=== PATIENT | female | born 1945 | race Caucasian/White ===

== ENCOUNTER 2016-08-02 05:35 | Inpatient (IN) ==
[~2016-08-02 05:35] MED LIST: FAMOTIDINE 20 MG TABLET PO ONE
[2016-08-02] MEDS ORDERED: VANCOMYCIN INJ 1,000 MG in SODIUM CHLORIDE 0.9% 250 ML IV ONE ×2 (06:00→19:15)
--- NOTE | 2016-08-02 06:54 | History and Physical Update ---
History and Physical Update - History and Physical H&P was reviewed, the patient examined and there: are no changes in the patients condition since last H&P was completed. (superficial skin tear right forearm)
[2016-08-02] MEDS ORDERED: IPRATROPIUM 500 MCG/2.5 ML NEB RESP TX ONE (07:00)
[2016-08-02] MEDS ORDERED: ALBUTEROL 2.5 MG/3 ML NEB RESP TX ONE (07:00)
[2016-08-02] MEDS ORDERED: LORazepam 1 MG TABLET PO ONE (07:00)
[2016-08-02] MEDS ORDERED: LACTATED RINGERS 1,000 ML IV SCH (08:00)
[2016-08-02] MEDS ORDERED: VANCOMYCIN 1,000 MG VIAL ONE (08:08)
[2016-08-02] MEDS ORDERED: LORazepam 1 MG TABLET ONE (08:09)
[2016-08-02] MEDS ORDERED: ceFAZolin 1,000 MG VIAL ONE (08:09)
[2016-08-02] MEDS ORDERED: FAMOTIDINE 20 MG TABLET ONE (08:09)
[2016-08-02] MEDS ORDERED: LIDOCAINE 2% 5 ML VIAL ONE (10:05)
[2016-08-02] MEDS ORDERED: PROPOFOL 200 MG/20 ML VIAL IV ONE (10:05)
[2016-08-02] MEDS ORDERED: BACITRACIN OINT 0.9 GM PACK TOP ONE (11:06)
--- NOTE | 2016-08-02 11:18 | Operative Note ---
Date of procedure: 08/02/16 Procedure: DIAGNOSIS: Right knee primary osteoarthrosis PROCEDURE: Right total knee arthroplasty (cpt #57023) SURGEON: Guera STRATEGY PLANNING CONSULTANT: Nathanael ANESTHESIA: Spinal with a postoperative femoral nerve block PROCEDURE and FINDINGS: After adequate was induced, the patient's knee was prepped and draped in the usual sterile fashion. The limb was exsanguinated with Esmarch. Tourniquet was inflated to 300 mmHg. A median parapatellar approach was made. Femur was cut using an intramedullary guide and a 4 in 1 cutting jig in 5 degrees of valgus. ACL and menisci were excised. Tibia was cut using intramedullary guide. Patella was cut using freehand technique. Components were trialed. Tibial fin was prepared. Components are cemented in place using Palacos cement and modern cementing techniques. Cement was removed. A 1/8 inch Hemovac drain was placed. The knee was well-balanced and full range of motion with central tracking patella. Deep layers closed with 0-0 Vicryl. Superficial layers were closed with 2-0 and 3-0 Vicryl. Skin was approximated with maikel. Bacitracin and a sterile dressing was applied. Patient was transferred to recovery. A postoperative femoral nerve block is anticipated. COMPONENTS: The Rosa Persona system was used. 7 CR narrow femur, D natural tibia, 12 mm liner, 35 mm patella TOURNIQUET TIME: 36 minutes Surgeon / Physician: Modesto Lynne Jr. Discharge Plan - Discharge Medications No Action Theophylline ER Tab 400 mg PO DAILY Potassium Chloride [Klor-Con M20] 20 meq PO BID Aclidinium Erie [Tudorza Pressair] 400 mcg IH BID Chlorthalidone 12.5 mg PO DAILY predniSONE TAB [PredniSONE] 10 mg PO DAILY Theophylline ER Tab 400 mg PO DAILY Clonidine HCl [Clonidine HCl ER] 0.1 mg PO BID Cholecalciferol [Vitamin D3] 1 tablet PO DAILY Aspirin [Ecotrin] 81 mg PO DAILY Albuterol Sulfate [Ventolin HFA] 2 puff INH Q4H PRN PRN Reason: Shortness Of Breath/Wheezing Budesonide/Formoterol 160-4.5 [Symbicort 160-4.5] 2 puff INH BID Meloxicam [Mobic] 15 mg PO DIRECTED - Follow Up or Referral - Forms/Instructions
--- NOTE | 2016-08-02 11:29 | Anesthesia ---
Anesthesia Post OP - Post Ansesthetic Evaluation Patient seen in post op: Yes Resp: within normal limits CV: within normal limits Mental: within normal limits Temp: within normal limits [id number]: within normal limits Nausea and Vomiting: within normal limits Pain: within normal limits
[2016-08-02] MEDS ORDERED: ROPIVACAINE 0.5% 30 ML VIAL ONE (11:30)
[2016-08-02] MEDS ORDERED: KETOROLAC 15 MG/1 ML VIAL IV SCH (11:30)
[2016-08-02] MEDS ORDERED: fentaNYL 100 MCG/2 ML VIAL ONE (11:31)
[2016-08-02] MEDS ORDERED: ACETAMINOPHEN 1,000 MG/100 ML VIAL IV ONE (11:31)
[2016-08-02] MEDS ORDERED: SODIUM CHLORIDE 0.9% 200 ML IV ONE (11:31)
[2016-08-02] MEDS ORDERED: MORPHINE 10 MG/10 ML VIAL ONE (11:31)
[2016-08-02] MEDS ORDERED: MIDAZOLAM 2 MG/2 ML VIAL ONE (11:31)
[2016-08-02] MEDS ORDERED: KETOROLAC 30 MG/1 ML VIAL ONE (12:20)
--- NOTE | 2016-08-02 13:10 | XRay Report ---
XR knee 2V RT Indication: Arthroplasty Comparison: None available Findings: Knee arthroplasty has been performed. Alignment and component positioning appears within normal limits. Impression: Expected postoperative appearance of the knee. PROCEDURE INTERPRETED AT [facility] DEPARTMENT OF RADIOLOGY Final Report Signed by: Dr. Brian Antunez
[2016-08-02] MEDS: KETOROLAC 15 MG/1 ML VIAL IV SCH ×2 (14:05→22:11)
[2016-08-02] MEDS ORDERED: ALBUTEROL 2.5 MG/3 ML NEB RESP TX PRN (15:00)
[2016-08-02] MEDS: ONDANSETRON 4 MG/2 ML VIAL IV PRN (15:26)
[2016-08-02] MEDS: ACETAMINOPHEN 500 MG TABLET PO SCH ×2 (15:32→22:41)
--- NOTE | 2016-08-02 16:12 | Pulmonology Progress Note ---
Pulmonary - PN: Subj Interval history: The patient is 71 years old and has COPD. She has considerable arthritis and came in for a right total knee replacement today. She had spinal anesthesia and did well. She is fairly stable postop and feels like her breathing is doing well. She has had some nausea but otherwise seems to be comfortable. Overall she has been quite stable. She has been taking some prednisone every other day but she is breathing comfortably now Exam (Progress Note) - Constitutional Vitals: Period Temp Pulse Resp BP Sys/White Pulse Ox Last 24 Hr 97.2 F-97.7 F 45-60 14-20 99-116/45-53 93-100 General appearance: normal weight, no acute distress - Head Head exam: Present: normal inspection, normocephalic - Eye Eye exam: Present: EOMI. Absent: scleral icterus Pupils: Present: FLAVIA - ENT ENT exam: Present: normal exam - Neck Neck exam: Present: normal inspection. Absent: lymphadenopathy, thyromegaly - Respiratory Respiratory exam: Present: decreased breath sounds. Absent: wheezes - Cardiovascular Cardiovascular exam: Present: regular rate and rhythm. Absent: gallop, systolic murmur - GI/Abdominal GI/Abdominal exam: Present: normal bowel sounds, soft. Absent: organomegaly, tenderness - Extremities Exam Extremities exam: Present: other (Right leg is bandaged). Absent: calf tenderness - Neurological Exam Neurological exam: Present: alert, oriented X3, CN II-XII intact - Psychiatric Psychiatric exam: Present: normal affect - Skin Skin exam: Present: warm, dry Assessment and Plan (1) Degenerative arthritis Status: Acute Assessment and plan: Patient has had considerable problems with knee pain and comes in for knee replacement. Current Visit: Yes (2) COPD (chronic obstructive pulmonary disease) Status: Acute Assessment and plan: She does have significant COPD but is been quite stable and will continue with bronchodilator therapy Current Visit: Yes (3) Status post total right knee replacement Status: Acute Assessment and plan: She had a right knee replacement with a spinal anesthesia and is doing well postop Current Visit: Yes (4) Hypertension Status: Acute Assessment and plan: Her blood pressure heart rate are stable at this point. Current Visit: Yes
--- NOTE | 2016-08-02 16:52 | Orthopedic Progress Note ---
Orthopedics - Subjective Interval history: Ashleigh Elkins has some nausea but is otherwise comfortable. BLE nv intact. Dressings dry. continue with orders. Exam - Constitutional Vitals: Period Temp Pulse Resp BP Sys/White Pulse Ox Last 24 Hr 97.2 F-97.7 F 45-60 14-20 99-116/45-53 93-100
[2016-08-02] MEDS: IPRATROPIUM 500 MCG/2.5 ML NEB RESP TX SCH (20:41)
[2016-08-02] MEDS: DOCUSATE SODIUM 100 MG CAPSULE PO SCH (22:11)
[2016-08-02] MEDS: ZALEPLON 5 MG CAPSULE PO PRN (22:11)
[2016-08-02] MEDS: POTASSIUM CHLORIDE 20 MEQ TABLET PO SCH (22:11)
[2016-08-02] MEDS: LACTATED RINGERS 1,000 ML IV SCH (22:12)
[2016-08-02] MEDS: BUDESONIDE/FORMOTEROL 160-4.5 INHALER 6 GM INH SCH (22:39)
[2016-08-02] MEDS: diphenhydrAMINE CAP 25 MG CAPSULE PO PRN (23:50)
[2016-08-03 02:58] LABS: Basophils % 0.3 % (0.0-0.8); Eosinophils # 0.2 10*3/uL (0.0-0.87); Eosinophils % 1.7 % (0.00-10.9); Hemoglobin 10.5 GM/DL (12.0-16.0); Immature Granulocytes % 0.3 %; Immature Granulocytes Absolute 0.03 #; Lymphocytes # 1.4 10*3/uL (1.4-4.0); Lymphocytes % 16.2 % (21.3-54.2); Mean Corpuscular HGB Conc 30.9 GM/DL (32-36); Mean Corpuscular Hemoglobin 27 PG (27-34); Mean Corpuscular Volume 86.5 FL (87-102); Mean Platelet Volume 13.6 FL (9.6-12.0); Monocytes % 11.3 % (1.7-12.7); Neutrophils # 6.1 10*3/uL (1.4-7.4); Neutrophils % 70.2 % (38.7-73.9); Platelet Count 139 T/CUMM (130-400); Red Blood Count 3.93 MC/CUMM (3.8-5.5); Red Cell Distribution Width 14.9 % (9.3-17.3); White Blood Count 8.7 T/CUMM (4-12)
[2016-08-03 03:30] LABS: Calcium 8.6 MG/DL (8.5-10.1); Osmolality,Calculated 287.7 MOS/KG (273-304); Potassium 3.8 MMOL/L (3.5-5.1)
[2016-08-03] MEDS: KETOROLAC 15 MG/1 ML VIAL IV SCH ×2 (03:37→09:27)
[2016-08-03] MEDS: ACETAMINOPHEN 500 MG TABLET PO SCH ×2 (03:37→09:28)
[2016-08-03] MEDS: LACTATED RINGERS 1,000 ML IV SCH (04:09)
[2016-08-03] MEDS: FONDAPARINUX 2.5 MG/0.5 ML SYRINGE SUBCUT SCH (05:53)
[2016-08-03] MEDS: IPRATROPIUM 500 MCG/2.5 ML NEB RESP TX SCH ×4 (06:52→19:40)
--- NOTE | 2016-08-03 07:38 | Orthopedic Progress Note ---
Orthopedics - Subjective Interval history: comfortable. nausea much better. dressing dry. nv ok mobilize per protocol. Exam - Constitutional Vitals: Period Temp Pulse Resp BP Sys/White Pulse Ox Last 24 Hr 97.0 F-97.7 F 45-77 14-22 99-141/45-65 93-100 Results - Labs CBC & BMP: 08/03/16 02:29 08/03/16 02:29
--- NOTE | 2016-08-03 08:08 | Pulmonology Progress Note ---
Pulmonary - PN: Subj Interval history: The patient is 71 years old and has COPD. She has considerable arthritis and came in for a right total knee replacement today. She had spinal anesthesia and did well. She is fairly stable postop and feels like her breathing is doing well. She has some nausea early on but this is better. She did well through the night and did not have any shortness of breath. She is moving her legs a little better now. She will start physical therapy today. Exam (Progress Note) - Constitutional Vitals: Period Temp Pulse Resp BP Sys/White Pulse Ox Last 24 Hr 96.9 F-97.7 F 45-77 14-22 99-141/45-76 93-100 Exam: General appearance: normal weight, no acute distress, she is awake and talking and in no distress. - Head Head exam: Present: normal inspection, normocephalic - Eye Eye exam: Present: EOMI. Absent: scleral icterus Pupils: Present: FLAVIA - ENT ENT exam: Present: normal exam - Neck Neck exam: Present: normal inspection. Absent: lymphadenopathy, thyromegaly - Respiratory Respiratory exam: Present: decreased breath sounds. She is moving air okay without any definite wheezing. - Cardiovascular Cardiovascular exam: Present: regular rate and rhythm. Absent: gallop, systolic murmur - GI/Abdominal GI/Abdominal exam: Present: normal bowel sounds, soft. Absent: organomegaly, tenderness - Extremities Exam Extremities exam: Present: other (Right leg is bandaged, she is moving her legs better now.). Absent: calf tenderness - Neurological Exam Neurological exam: Present: alert, oriented X3, CN II-XII intact - Psychiatric Psychiatric exam: Present: normal affect - Skin Skin exam: Present: warm, dry Results - Labs CBC & BMP: 08/03/16 02:29 08/03/16 02:29 Assessment and Plan (1) Degenerative arthritis Status: Acute Assessment and plan: Patient has had considerable problems with knee pain and comes in for knee replacement. She is doing well postop so far Current Visit: Yes (2) COPD (chronic obstructive pulmonary disease) Status: Acute Assessment and plan: She does have significant COPD but is been quite stable and will continue with bronchodilator therapy. She is not having any shortness of breath or wheezing now Current Visit: Yes (3) Status post total right knee replacement Status: Acute Assessment and plan: She had a right knee replacement with a spinal anesthesia and is doing well postop. She will start physical therapy today. Current Visit: Yes (4) Hypertension Status: Acute Assessment and plan: Her blood pressure and heart rate are stable at this point. Current Visit: Yes
[2016-08-03] MEDS: CLONIDINE HCL 0.1 MG PO SCH ×3 (08:55→20:30)
[2016-08-03] MEDS ORDERED: THEOPHYLLINE ER 300 MG TABLET PO SCH (09:00)
[2016-08-03] MEDS: DOCUSATE SODIUM 100 MG CAPSULE PO SCH ×2 (09:28→20:22)
[2016-08-03] MEDS: predniSONE 10 MG TABLET PO SCH (09:28)
[2016-08-03] MEDS: THEOPHYLLINE ER (24 HR) 400 MG CAPSULE PO SCH (09:28)
[2016-08-03] MEDS: POTASSIUM CHLORIDE 20 MEQ TABLET PO SCH ×2 (09:28→20:22)
[2016-08-03] MEDS: CHOLECALCIFEROL 1,000 UNIT TABLET PO SCH (09:28)
[2016-08-03] MEDS: CHLORTHALIDONE 25 MG TABLET PO SCH (09:28)
[2016-08-03] MEDS: BUDESONIDE/FORMOTEROL 160-4.5 INHALER 6 GM INH SCH ×2 (09:31→20:22)
--- NOTE | 2016-08-03 11:50 | Pathology Report from [facility] ---
ACCESSION # : [id number] PATIENT NAME : Ashleigh Ibanez ORDERING DR : ROSEMARIE WHITE MD CLINICAL HX: Right knee osteoarthritis POST-OP DX: Same SPECIMEN INFO: Right knee bone and tissue GROSS DESCRIPTION: Received in formalin labeled "ASHLEIGH IBANEZ" consists of multiple fragments on bone, soft tissue and cartilage measuring 13.0 x 6.0 cm collectively. An area of bone eburnation seen. Emblem Fuser Tender sections are submitted in one cassette. DIAGNOSIS FOR ASHLEIGH IBANEZ: RIGHT KNEE BONE & TISSUE, TOTAL REPLACEMENT: Osteoarthritis. SERVICE DATE: 08/02/2016 REPORT DATE: 08/03/2016 PATHOLOGIST: Miller Champion
[2016-08-03] MEDS: diphenhydrAMINE CAP 25 MG CAPSULE PO PRN (22:10)
[2016-08-03] MEDS: ZALEPLON 5 MG CAPSULE PO PRN (23:43)
[2016-08-03] MEDS: MORPHINE 2 MG/1 ML SYRINGE IV PRN (23:44)
[2016-08-04] MEDS: FONDAPARINUX 2.5 MG/0.5 ML SYRINGE SUBCUT SCH (05:48)
[2016-08-04 06:33] LABS: Basophils % 0.3 % (0.0-0.8); Eosinophils # 0.1 10*3/uL (0.0-0.87); Eosinophils % 1.2 % (0.00-10.9); Hematocrit 35.4 VOL% (35.7-47.0); Hemoglobin 10.8 GM/DL (12.0-16.0); Immature Granulocytes % 0.2 %; Immature Granulocytes Absolute 0.02 #; Lymphocytes # 2.1 10*3/uL (1.4-4.0); Lymphocytes % 21.6 % (21.3-54.2); Mean Corpuscular HGB Conc 30.5 GM/DL (32-36); Mean Corpuscular Hemoglobin 27 PG (27-34); Mean Corpuscular Volume 87.4 FL (87-102); Mean Platelet Volume 13.3 FL (9.6-12.0); Monocytes # 1.2 10*3/uL (0.11-0.8); Monocytes % 12.1 % (1.7-12.7); Neutrophils # 6.4 10*3/uL (1.4-7.4); Neutrophils % 64.6 % (38.7-73.9); Platelet Count 163 T/CUMM (130-400); Red Blood Count 4.05 MC/CUMM (3.8-5.5); Red Cell Distribution Width 15.4 % (9.3-17.3); White Blood Count 9.9 T/CUMM (4-12)
[2016-08-04] MEDS: IPRATROPIUM 500 MCG/2.5 ML NEB RESP TX SCH ×4 (07:31→19:42)
--- NOTE | 2016-08-04 08:21 | Orthopedic Progress Note ---
Orthopedics - Subjective Interval history: Sore today since block wore off. dressing dry. nv ok. Mobilize with therapy. Discharge planning Exam - Constitutional Vitals: Period Temp Pulse Resp BP Sys/White Pulse Ox Last 24 Hr 97.7 F-98.6 F 65-89 16-20 116-128/61-65 93-99 Results - Labs CBC & BMP: 08/04/16 06:00 08/03/16 02:29
[2016-08-04] MEDS: THEOPHYLLINE ER (24 HR) 400 MG CAPSULE PO SCH (09:36)
[2016-08-04] MEDS: BUDESONIDE/FORMOTEROL 160-4.5 INHALER 6 GM INH SCH ×2 (09:37→20:53)
[2016-08-04] MEDS: predniSONE 10 MG TABLET PO SCH (09:37)
[2016-08-04] MEDS: CLONIDINE HCL 0.1 MG PO SCH ×2 (09:37→20:50)
[2016-08-04] MEDS: CHOLECALCIFEROL 1,000 UNIT TABLET PO SCH (09:37)
[2016-08-04] MEDS: CHLORTHALIDONE 25 MG TABLET PO SCH (09:37)
[2016-08-04] MEDS: DOCUSATE SODIUM 100 MG CAPSULE PO SCH ×2 (09:37→20:46)
[2016-08-04] MEDS: POTASSIUM CHLORIDE 20 MEQ TABLET PO SCH ×2 (09:37→20:46)
[2016-08-04] MEDS: MORPHINE 2 MG/1 ML SYRINGE IV PRN ×3 (09:44→20:50)
[2016-08-04] MEDS: ONDANSETRON 4 MG/2 ML VIAL IV PRN ×3 (09:45→23:39)
[2016-08-04] MEDS: diphenhydrAMINE CAP 25 MG CAPSULE PO PRN ×2 (09:51→20:46)
--- NOTE | 2016-08-04 10:43 | Pulmonology Progress Note ---
Pulmonary - PN: Subj Interval history: The patient is 71 years old and has COPD. She has considerable arthritis and came in for a right total knee replacement. She has been doing some physical therapy and getting up and moving around. She did fairly well through the night. She is having some itching after narcotics. Her breathing is doing much better. Overall she has been quite stable postop Exam (Progress Note) - Constitutional Vitals: Period Temp Pulse Resp BP Sys/White Pulse Ox Last 24 Hr 97.7 F-98.6 F 65-89 16-20 116-128/61-65 93-99 Exam: General appearance: normal weight, no acute distress, she is sitting up and moving around better. - Head Head exam: Present: normal inspection, normocephalic - Eye Eye exam: Present: EOMI. Absent: scleral icterus Pupils: Present: FLAVIA - ENT ENT exam: Present: normal exam - Neck Neck exam: Present: normal inspection. Absent: lymphadenopathy, thyromegaly - Respiratory Respiratory exam: Present: decreased breath sounds. She is moving air okay without any definite wheezing. Her lungs still sound fairly clear. - Cardiovascular Cardiovascular exam: Present: regular rate and rhythm. Absent: gallop, systolic murmur - GI/Abdominal GI/Abdominal exam: Present: normal bowel sounds, soft. Absent: organomegaly, tenderness - Extremities Exam Extremities exam: Present: other (Right leg looks good without a lot of swelling or redness. She has no calf tenderness. - Neurological Exam Neurological exam: Present: alert, oriented X3, CN II-XII intact - Psychiatric Psychiatric exam: Present: normal affect - Skin Skin exam: Present: warm, dry Results - Labs CBC & BMP: 08/04/16 06:00 08/03/16 02:29 Assessment and Plan (1) Degenerative arthritis Status: Acute Assessment and plan: Patient has had considerable problems with knee pain and comes in for knee replacement. She is doing well postop. Current Visit: Yes (2) COPD (chronic obstructive pulmonary disease) Status: Acute Assessment and plan: She does have significant COPD but is been quite stable and will continue with bronchodilator therapy. She is not having any shortness of breath or wheezing now. She continues to do well medically. Current Visit: Yes (3) Status post total right knee replacement Status: Acute Assessment and plan: She had a right knee replacement with a spinal anesthesia and is doing well postop. She continues to do physical therapy very well. Current Visit: Yes (4) Hypertension Status: Acute Assessment and plan: Her blood pressure and heart rate are stable at this point. Current Visit: Yes
[2016-08-04] MEDS: MAGNESIUM HYDROXIDE SUSP 30 ML UDCUP PO PRN (20:45)
[2016-08-05] MEDS: MORPHINE 2 MG/1 ML SYRINGE IV PRN ×2 (00:51→08:43)
[2016-08-05] MEDS: CLONIDINE HCL 0.1 MG PO SCH ×3 (00:56→20:03)
[2016-08-05] MEDS: FONDAPARINUX 2.5 MG/0.5 ML SYRINGE SUBCUT SCH (05:46)
[2016-08-05 06:00] LABS: Basophils % 0.3 % (0.0-0.8); Eosinophils # 0.1 10*3/uL (0.0-0.87); Eosinophils % 0.7 % (0.00-10.9); Hemoglobin 10.7 GM/DL (12.0-16.0); Immature Granulocytes % 0.2 %; Immature Granulocytes Absolute 0.02 #; Lymphocytes # 2.9 10*3/uL (1.4-4.0); Lymphocytes % 27.1 % (21.3-54.2); Mean Corpuscular HGB Conc 31.5 GM/DL (32-36); Mean Corpuscular Hemoglobin 27 PG (27-34); Mean Corpuscular Volume 85.4 FL (87-102); Mean Platelet Volume 13.2 FL (9.6-12.0); Monocytes # 1.3 10*3/uL (0.11-0.8); Monocytes % 11.7 % (1.7-12.7); Neutrophils # 6.4 10*3/uL (1.4-7.4); Platelet Count 179 T/CUMM (130-400); Red Blood Count 3.98 MC/CUMM (3.8-5.5); Red Cell Distribution Width 15.7 % (9.3-17.3); White Blood Count 10.7 T/CUMM (4-12)
[2016-08-05] MEDS: IPRATROPIUM 500 MCG/2.5 ML NEB RESP TX SCH ×4 (07:39→19:18)
--- NOTE | 2016-08-05 08:41 | Pulmonology Progress Note ---
Pulmonary - PN: Subj Interval history: The patient is 71 years old and has COPD. She has considerable arthritis and came in for a right total knee replacement. She had a fairly good day yesterday but last night she had a temperature to 101.4. She had a sweat and then it cleared up. She has not had a bowel movement yet. She says her leg is feeling better. She is not having any increased cough or congestion. She looks like she feels better this morning. Exam (Progress Note) - Constitutional Vitals: Period Temp Pulse Resp BP Sys/White Pulse Ox Last 24 Hr 97.9 F-101.4 F 79-124 15-20 136-163/55-88 87-99 Exam: General appearance: normal weight, no acute distress, she is sitting up and moving around better. - Head Head exam: Present: normal inspection, normocephalic - Eye Eye exam: Present: EOMI. Absent: scleral icterus Pupils: Present: FLAVIA - ENT ENT exam: Present: normal exam - Neck Neck exam: Present: normal inspection. Absent: lymphadenopathy, thyromegaly - Respiratory Respiratory exam: Present: She has good breath sounds bilaterally without any increased rales or wheezing. - Cardiovascular Cardiovascular exam: Present: regular rate and rhythm. Absent: gallop, systolic murmur - GI/Abdominal GI/Abdominal exam: Present: normal bowel sounds, soft. Absent: organomegaly, tenderness - Extremities Exam Extremities exam: Present: other (Right leg looks good without a lot of swelling or redness. She has no calf tenderness.) - Neurological Exam Neurological exam: Present: alert, oriented X3, CN II-XII intact - Psychiatric Psychiatric exam: Present: normal affect - Skin Skin exam: Present: warm, dry Results - Labs CBC & BMP: 08/05/16 05:28 08/03/16 02:29 Assessment and Plan (1) Degenerative arthritis Status: Acute Assessment and plan: Patient has had considerable problems with knee pain and comes in for knee replacement. She says her leg is feeling better now. Current Visit: Yes (2) COPD (chronic obstructive pulmonary disease) Status: Acute Assessment and plan: She does have significant COPD but is been quite stable and will continue with bronchodilator therapy. She had some fever last night but her breathing seems to be relatively stable. Current Visit: Yes (3) Status post total right knee replacement Status: Acute Assessment and plan: She had a right knee replacement with a spinal anesthesia and is doing well postop. She continues to do physical therapy very well. Current Visit: Yes (4) Hypertension Status: Acute Assessment and plan: Her blood pressure was slightly open little bit yesterday but has been reasonable. I will start her clonidine back. Current Visit: Yes
[2016-08-05] MEDS: DOCUSATE SODIUM 100 MG CAPSULE PO SCH ×2 (08:45→20:03)
[2016-08-05] MEDS: POTASSIUM CHLORIDE 20 MEQ TABLET PO SCH ×2 (08:46→20:03)
[2016-08-05] MEDS: CHLORTHALIDONE 25 MG TABLET PO SCH (08:46)
[2016-08-05] MEDS: CHOLECALCIFEROL 1,000 UNIT TABLET PO SCH (08:46)
[2016-08-05] MEDS: THEOPHYLLINE ER (24 HR) 400 MG CAPSULE PO SCH (08:46)
[2016-08-05] MEDS: MAGNESIUM HYDROXIDE SUSP 30 ML UDCUP PO PRN (08:47)
[2016-08-05] MEDS: predniSONE 10 MG TABLET PO SCH (08:49)
[2016-08-05] MEDS: BUDESONIDE/FORMOTEROL 160-4.5 INHALER 6 GM INH SCH ×2 (08:49→20:02)
--- NOTE | 2016-08-05 08:49 | Orthopedic Progress Note ---
Orthopedics - Subjective Interval history: Ms. Elkins is complaining of nausea yesterday. She has not had a bowel movement yet. She had a temperature to 101.4 yesterday evening. Dressing is clean, dry and intact. Right lower extremity is neurovascularly unchanged. Plan: Continue physical therapy. Change to Percocet from [place]. Work on bowel movement. Encourage deep breathing and coughing. Home tomorrow. Exam - Constitutional Vitals: Period Temp Pulse Resp BP Sys/White Pulse Ox Last 24 Hr 97.9 F-101.4 F 79-124 15-20 136-163/55-88 87-99 Results - Labs CBC & BMP: 08/05/16 05:28 08/03/16 02:29
--- NOTE | 2016-08-05 08:52 | Discharge Summary ---
Hospital Course - Hospital Course Hospital Course: Mrs. Elkins was admitted after undergoing an uncomplicated right total knee arthroplasty. She received perioperative DVT and antimicrobial prophylaxis. She received physical therapy. She was discharged home with home health therapy in stable condition. She has routine total knee discharge instructions. Specialty Discharge - Follow Up or Referrals Follow up with: Modesto Lynne Jr., MD [Physician] - 08/30/16 2:15 pm Discharge Plan - Discharge Data Disposition: Home Health Service Condition at Discharge: Stable Discharge Diet: advance to your usual diet Activity: ambulate only with your walker Hygiene: may shower Weight Bearing at Discharge: weight bear as tolerated Driving: not until seen by doctor - Discharge Medications Continue Theophylline ER Tab 400 mg PO DAILY Potassium Chloride [Klor-Con M20] 20 meq PO BID Chlorthalidone 12.5 mg PO DAILY predniSONE TAB [PredniSONE] 10 mg PO DAILY Clonidine HCl [Clonidine HCl ER] 0.1 mg PO BID Cholecalciferol [Vitamin D3] 1 tablet PO DAILY Aspirin [Ecotrin] 81 mg PO DAILY Albuterol Sulfate [Ventolin HFA] 2 puff INH Q4H PRN PRN Reason: Shortness Of Breath/Wheezing Budesonide/Formoterol 160-4.5 [Symbicort 160-4.5] 2 puff INH BID Meloxicam [Mobic] 15 mg PO DAILY - Follow Up or Referral Follow Up: Modesto Lynne Jr., MD [Physician] - 08/30/16 2:15 pm - Forms/Instructions Instructions: Total Knee Replacement (DC) Additional Discharge Instructions: Daily dry dressing changes. Weightbearing as tolerated. CPM for 3 weeks. Arrange walker and bedside commode for home use. Wear ENRRIQUE hose for 1 month. Discontinue maikel and Steri-Strip wound on August 12, 2016. Follow-up appointment in 4 weeks. Prescription for Percocet 5 with 30 tablets was written. Exam - Constitutional Vitals: Period Temp Pulse Resp BP Sys/White Pulse Ox Last 24 Hr 97.9 F-101.4 F 79-124 15-20 136-163/55-88 87-99 Discharge Results Labs on day of discharge: Labs from last 24 hours 08/05/16 05:28 WBC 10.7 RBC 3.98 Hgb 10.7 L Hct 34.0 L MCV 85.4 L MCH 27 MCHC 31.5 L RDW 15.7 Plt Count 179 MPV 13.2 H Neut % (Auto) 60.0 Lymph % (Auto) 27.1 Atkinson % (Auto) 11.7 Eos % (Auto) 0.7 Baso % (Auto) 0.3 Neut # (Auto) 6.4 Lymph # (Auto) 2.9 Atkinson # (Auto) 1.3 H Eos # (Auto) 0.1 Baso # (Auto) 0.0 Immature Gran % 0.2 Nucleated RBC % 0.0 Immature Gran # 0.02 Nucleated RBCs # 0.00 DS: Provider Date of admission: 08/02/16 05:35 Primary care physician: Michelle Short DO Attending physician on admission: Modesto Lynne Jr., Consults: 08/02/16 11:14 Consult to Case Mgmt/Social Srvs [CONS] Routine Reason for Case Mgmt/Social Srvs: Rehab Home Health Equipment Consult Comment: CPM Machine f/home rehab use during HH Rehab Therapy Consult to Occupational Therapy [CONS] Routine Reason for Occupational Therapy: Evaluate and Treat Consult Comment: ADL's Consult to Physical Therapy [CONS] Routine Reason for Physical Therapy: Evaluate and Treat Gait Training Start Therapy: Today 08/02/16 12:46 Consult to Pharmacy [CONS] Routine Reason for Pharmacy Consult: Adjust Meds Renal Funct 08/02/16 12:53 Consult to Physician [CONS] Routine Comment: Consulting Provider: Toney Short Consulting Provider Notified: Yes When should Consulting Provider be notified: Now Person Notified: [email or web address] [email or web address] Date Notified: 08/02/16 Time Notified: 13:31 08/02/16 14:11 Consult to Dietitian [CONS] Routine Reason for Dietitian: Dietary Consult Consult to Pastoral Services [CONS] Routine Comment: Pastoral Screen: Request Microbiology Director Visit Pastoral Screen Source of Request: Patient Discharging clinician: Modesto Lynne Jr., Expected date of discharge: 08/07/16
[2016-08-05] MEDS: oxyCODONE/ACETAMINOPHEN 5-325 MG TABLET PO PRN ×3 (13:52→22:44)
[2016-08-06] MEDS: oxyCODONE/ACETAMINOPHEN 5-325 MG TABLET PO PRN ×3 (05:30→20:05)
[2016-08-06] MEDS: MAGNESIUM HYDROXIDE SUSP 30 ML UDCUP PO PRN (05:30)
[2016-08-06] MEDS: FONDAPARINUX 2.5 MG/0.5 ML SYRINGE SUBCUT SCH (05:31)
[2016-08-06] MEDS: IPRATROPIUM 500 MCG/2.5 ML NEB RESP TX SCH ×4 (07:17→20:37)
[2016-08-06] MEDS: POTASSIUM CHLORIDE 20 MEQ TABLET PO SCH ×2 (08:02→20:04)
[2016-08-06] MEDS: DOCUSATE SODIUM 100 MG CAPSULE PO SCH ×2 (08:02→20:05)
[2016-08-06] MEDS: predniSONE 10 MG TABLET PO SCH (08:02)
[2016-08-06] MEDS: CHLORTHALIDONE 25 MG TABLET PO SCH (08:02)
[2016-08-06] MEDS: BUDESONIDE/FORMOTEROL 160-4.5 INHALER 6 GM INH SCH ×2 (08:02→20:04)
[2016-08-06] MEDS: THEOPHYLLINE ER (24 HR) 400 MG CAPSULE PO SCH (08:02)
[2016-08-06] MEDS: CLONIDINE HCL 0.1 MG PO SCH ×2 (08:02→22:36)
[2016-08-06] MEDS: CHOLECALCIFEROL 1,000 UNIT TABLET PO SCH (08:02)
--- NOTE | 2016-08-06 09:31 | Pulmonology Progress Note ---
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 She is usually in their first for lobby. I am seeing this patient for Dr. Jama Short. She has COPD. She had a knee replacement. She is doing well from a medical standpoint. She did have fever several days ago but this is completely resolved. Microbiology. No positive cultures Lab. White count is 10,700 with 60 segs 27 lymphs and 12 monos. H&H is 10.7/ 34.0. Platelets are 179,000. Physical exam. Vital signs. See below. No fever Psychiatric. Oriented 3. Neurologic cranial nerves are intact. Long track motor functions intact Neck. Symmetrical. No meningismus. Chest. Clear Heart. No gallop Abdomen. Nontender. Few bowel sounds were heard. Extremities nothing to suggest deep venous thrombophlebitis. Lymphatics. No submandibular cervical supraclavicular or epitrochlear adenopathy. The remainder the physical exam is noncontributory. Plan. 1. No changes were made. 2. This patient is doing well and may be ready for discharge in the near future Exam (Progress Note) - Constitutional Vitals: Period Temp Pulse Resp BP Sys/White Pulse Ox Last 24 Hr 97.1 F-99.1 F 72-105 16-22 100-127/55-70 90-98 Results - Labs CBC & BMP: 08/05/16 05:28 08/03/16 02:29 Specialty Discharge - Follow Up or Referrals Follow up with: Modesto Lynne Jr., MD [Physician] - 08/30/16 2:15 pm
--- NOTE | 2016-08-06 10:51 | Orthopedic Progress Note ---
Orthopedics - Subjective Interval history: She is complaining of some increased pain in the right knee today particularly with motion. On exam her dressings clean and dry, she has mild edema, she is neurovascular intact Exam - Constitutional Vitals: Period Temp Pulse Resp BP Sys/White Pulse Ox Last 24 Hr 97.1 F-99.1 F 72-105 16- 100-127/55-70 90-98 Results - Labs CBC & BMP: 08/05/16 05:28 08/03/16 02:29 Specialty Discharge - Follow Up or Referrals Follow up with: Modesto Lynne Jr., MD [Physician] - 08/30/16 2:15 pm
[2016-08-06] MEDS: diphenhydrAMINE CAP 25 MG CAPSULE PO PRN (23:18)
[2016-08-07] MEDS: oxyCODONE/ACETAMINOPHEN 5-325 MG TABLET PO PRN ×2 (02:15→08:33)
[2016-08-07] MEDS: FONDAPARINUX 2.5 MG/0.5 ML SYRINGE SUBCUT SCH (05:37)
[2016-08-07] MEDS: IPRATROPIUM 500 MCG/2.5 ML NEB RESP TX SCH ×2 (07:08→10:45)
--- NOTE | 2016-08-07 07:52 | Orthopedic Progress Note ---
Assessment and Plan (1) Status post total right knee replacement Status: Acute Assessment and plan: Discharge home today Current Visit: Yes Orthopedics - Subjective Interval history: No new complaints today. Patient was able to get up and about in the room by herself yesterday evening. On exam her dressings clean and dry, she is neurovascularly intact. Exam - Constitutional Vitals: Period Temp Pulse Resp BP Sys/White Pulse Ox Last 24 Hr 97.9 F-99.6 F 72-100 16-20 102-137/64-93 90-100 Results - Labs CBC & BMP: 08/05/16 05:28 08/03/16 02:29 Specialty Discharge - Follow Up or Referrals Follow up with: Modesto Lynne Jr., MD [Physician] - 08/30/16 2:15 pm
[2016-08-07] MEDS: CHLORTHALIDONE 25 MG TABLET PO SCH (08:33)
[2016-08-07] MEDS: THEOPHYLLINE ER (24 HR) 400 MG CAPSULE PO SCH (08:33)
[2016-08-07] MEDS: DOCUSATE SODIUM 100 MG CAPSULE PO SCH (08:34)
[2016-08-07] MEDS: POTASSIUM CHLORIDE 20 MEQ TABLET PO SCH (08:34)
[2016-08-07] MEDS: predniSONE 10 MG TABLET PO SCH (08:34)
[2016-08-07] MEDS: CLONIDINE HCL 0.1 MG PO SCH (08:35)
[2016-08-07] MEDS: BUDESONIDE/FORMOTEROL 160-4.5 INHALER 6 GM INH SCH (08:36)
[2016-08-07] MEDS: CHOLECALCIFEROL 1,000 UNIT TABLET PO SCH (10:01)
--- NOTE | 2016-08-07 10:41 | Pulmonology Progress Note ---
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 She is usually in their first for lobby. I am seeing this patient for Dr. Jama Short. She has COPD. She had a knee replacement. She is doing well from a medical standpoint. She did have fever several days ago but this is completely resolved. Microbiology. No positive cultures Lab. White count is 10,700 with 60 segs 27 lymphs and 12 monos. H&H is 10.7/ 34.0. Platelets are 179,000. 08/07/2016. Patient's doing well. She has no new complaints. She is hoping to go home today. She has had temp to 99 6 overnight. She denies any diaphoresis or any symptoms of infection. Her physical exam is unchanged. See documentation below. She is hoping to get back to her job with given information and in the first [address] [place] lobby within a 2 month period of time Physical exam. Vital signs. See below. Temperature 99.6 overnight Psychiatric. Oriented 3. Neurologic cranial nerves are intact. Long track motor functions intact Neck. Symmetrical. No meningismus. Chest. Clear Heart. No gallop Abdomen. Nontender. Few bowel sounds were heard. Extremities nothing to suggest deep venous thrombophlebitis. Lymphatics. No submandibular cervical supraclavicular or epitrochlear adenopathy. The remainder the physical exam is noncontributory. Plan. 1. No changes were made. 2. This patient is doing well and may be ready for discharge in the near future Exam (Progress Note) - Constitutional Vitals: Period Temp Pulse Resp BP Sys/White Pulse Ox Last 24 Hr 97.9 F-99.6 F 73-100 16-20 123-137/66-93 91-100 Results - Labs CBC & BMP: 08/05/16 05:28 08/03/16 02:29 Specialty Discharge - Follow Up or Referrals Follow up with: Modesto Lynne Jr., MD [Physician] - 08/30/16 2:15 pm
[2016-08-07 13:13] VITALS: BP 153/77
== END 2016-08-07 13:00 | disposition home health service (06) | DRG 470 ==
LOC: N.SDSINP 05:35 → N.3E 12:34
PROVIDERS: ADMIT Orthopaedic Surgery; ATTEND Orthopaedic Surgery

== ENCOUNTER 2020-07-30 12:02 | Observation (INO) ==
[2020-07-30] MEDS ORDERED: ENOXAPARIN 100 MG/ML SYRINGE SUBCUT STA (12:55)
[2020-07-30 13:07] LABS: Troponin I < 0.015 NG/ML (0.00-0.045)
[2020-07-30 13:27] LABS: Basophils % 0.4 % (0.0-0.8); Eosinophils # 0.1 10*3/uL (0.0-0.87); Eosinophils % 1.6 % (0.00-10.9); Hematocrit 43.9 VOL% (35.7-47.0); Hemoglobin 14.1 GM/DL (12.0-16.0); Immature Granulocytes % 0.4 %; Immature Granulocytes Absolute 0.03 #; Lymphocytes # 2.6 10*3/uL (1.4-4.0); Lymphocytes % 31.8 % (21.3-54.2); Mean Corpuscular HGB Conc 32.1 GM/DL (32-36); Mean Corpuscular Volume 94.2 FL (87-102); Mean Platelet Volume 12.9 FL (9.6-12.0); Monocytes % 7.6 % (1.7-12.7); Neutrophils % 58.2 % (38.7-73.9); Platelet Count 156 T/CUMM (130-400); Red Blood Count 4.66 MC/CUMM (3.8-5.5); Red Cell Distribution Width 13.1 % (9.3-17.3); White Blood Count 8.2 T/CUMM (4-12)
[2020-07-30 13:38] LABS: Albumin 3.6 G/DL (3.4-5.0); Bilirubin,Total 0.6 MG/DL (0.2-1.0); Calcium 8.9 MG/DL (8.5-10.1); Osmolality,Calculated 272.1 MOS/KG (273-304); Potassium 4.3 MMOL/L (3.5-5.1)
[2020-07-30] MEDS ORDERED: ONDANSETRON 4 MG/2 ML VIAL IV PRN (14:04)
[2020-07-30] MEDS ORDERED: GLUCAGON 1 MG VIAL IM PRN (14:04)
[2020-07-30] MEDS ORDERED: ACETAMINOPHEN 325 MG TABLET PO PRN (14:04)
[2020-07-30] MEDS ORDERED: DEXTROSE 50% 25 GM/50 ML VIAL IV PRN (14:04)
[2020-07-30] MEDS ORDERED: ALUM/MAG/SIMETH/LIDO VISC 1:1 30 ML BOTTLE PO ONE (15:49)
[2020-07-30] MEDS ORDERED: NITROGLYCERIN SL 0.4 MG TABLET SL ONE (15:49)
[2020-07-30] MEDS ORDERED: ALUM/MAG/SIMETH/LIDO VISC 1:1 30 ML BOTTLE PO STA (16:14)
[2020-07-30] MEDS ORDERED: ALBUTEROL 2.5 MG/3 ML NEB RESP TX PRN (16:14)
[2020-07-30] MEDS ORDERED: NITROGLYCERIN SL 0.4 MG TABLET SL STA (16:14)
[2020-07-30] MEDS ORDERED: NITROGLYCERIN SL 0.4 MG TABLET SL PRN (16:14)
[2020-07-30] MEDS: INSULIN REGULAR 100 UNIT/ML SUBCUT SCH ×2 (16:36→21:15)
[2020-07-30] MEDS: FAMOTIDINE 20 MG TABLET PO SCH (21:06)
[2020-07-30] MEDS: DOCUSATE SODIUM 100 MG CAPSULE PO SCH (21:07)
[2020-07-30] MEDS: METOPROLOL TARTRATE 25 MG TABLET PO SCH (21:07)
[2020-07-30] MEDS: ISOSORBIDE MONONITRATE 20 MG TABLET PO SCH (21:07)
[2020-07-31] MEDS: tiZANidine 4 MG TABLET PO PRN ×2 (02:07→17:58)
[2020-07-31 06:06] LABS: Basophils % 0.4 % (0.0-0.8); Eosinophils # 0.1 10*3/uL (0.0-0.87); Eosinophils % 1.9 % (0.00-10.9); Hematocrit 38.9 VOL% (35.7-47.0); Hemoglobin 12.5 GM/DL (12.0-16.0); Immature Granulocytes % 0.3 %; Immature Granulocytes Absolute 0.02 #; Lymphocytes # 2.1 10*3/uL (1.4-4.0); Lymphocytes % 29.8 % (21.3-54.2); Mean Corpuscular HGB Conc 32.1 GM/DL (32-36); Mean Corpuscular Volume 93.7 FL (87-102); Mean Platelet Volume 13.1 FL (9.6-12.0); Monocytes % 8.8 % (1.7-12.7); Neutrophils % 58.8 % (38.7-73.9); Platelet Count 130 T/CUMM (130-400); Red Blood Count 4.15 MC/CUMM (3.8-5.5); White Blood Count 6.9 T/CUMM (4-12)
[2020-07-31 06:31] LABS: Calcium 8.6 MG/DL (8.5-10.1); Osmolality,Calculated 278.7 MOS/KG (273-304); Potassium 4.1 MMOL/L (3.5-5.1)
[2020-07-31 06:40] LABS: Microcytosis 1+
[2020-07-31 06:41] LABS: Ovalocytes Few; Platelet Estimate Adequate
[2020-07-31] MEDS ORDERED: MORPHINE 4 MG/1 ML VIAL IM PRN (07:39)
[2020-07-31] MEDS ORDERED: REGADENOSON 0.4 MG/5 ML SYRINGE IV ONE (09:57)
[2020-07-31] MEDS: INSULIN REGULAR 100 UNIT/ML SUBCUT SCH ×4 (10:00→20:55)
[2020-07-31] MEDS: ASPIRIN EC 81 MG TABLET PO SCH (10:15)
[2020-07-31] MEDS: CLOPIDOGREL 75 MG TABLET PO SCH (10:15)
[2020-07-31] MEDS: ISOSORBIDE MONONITRATE 20 MG TABLET PO SCH ×2 (10:16→20:55)
[2020-07-31] MEDS: METOPROLOL TARTRATE 25 MG TABLET PO SCH ×2 (10:16→20:55)
[2020-07-31] MEDS: THEOPHYLLINE ER (24 HR) 200 MG CAPSULE PO SCH (10:17)
[2020-07-31] MEDS: ROSUVASTATIN 20 MG TABLET PO SCH (10:19)
[2020-07-31] MEDS: DOCUSATE SODIUM 100 MG CAPSULE PO SCH ×2 (10:19→20:55)
[2020-07-31] MEDS: BISACODYL 5 MG TABLET PO SCH (14:09)
[2020-07-31] MEDS: FAMOTIDINE 20 MG TABLET PO SCH (20:55)
[2020-08-01] MEDS: tiZANidine 4 MG TABLET PO PRN ×2 (03:46→20:58)
[2020-08-01 05:15] LABS: Basophils % 0.5 % (0.0-0.8); Eosinophils # 0.2 10*3/uL (0.0-0.87); Eosinophils % 2.4 % (0.00-10.9); Hematocrit 39.8 VOL% (35.7-47.0); Hemoglobin 12.7 GM/DL (12.0-16.0); Immature Granulocytes % 0.3 %; Immature Granulocytes Absolute 0.02 #; Lymphocytes # 2.2 10*3/uL (1.4-4.0); Lymphocytes % 33.3 % (21.3-54.2); Mean Corpuscular HGB Conc 31.9 GM/DL (32-36); Mean Corpuscular Volume 93.6 FL (87-102); Mean Platelet Volume 12.6 FL (9.6-12.0); Monocytes % 10.2 % (1.7-12.7); Neutrophils % 53.3 % (38.7-73.9); Platelet Count 122 T/CUMM (130-400); Red Blood Count 4.25 MC/CUMM (3.8-5.5); White Blood Count 6.6 T/CUMM (4-12)
[2020-08-01 05:41] LABS: Albumin 3.2 G/DL (3.4-5.0); Bilirubin,Total 0.7 MG/DL (0.2-1.0); Calcium 8.6 MG/DL (8.5-10.1); Osmolality,Calculated 277.7 MOS/KG (273-304); Potassium 4.2 MMOL/L (3.5-5.1); Total Protein 6.1 G/DL (5.0-7.5)
[2020-08-01] MEDS: INSULIN REGULAR 100 UNIT/ML SUBCUT SCH ×4 (08:43→21:00)
[2020-08-01] MEDS: DOCUSATE SODIUM 100 MG CAPSULE PO SCH ×2 (08:44→20:58)
[2020-08-01] MEDS: BISACODYL 5 MG TABLET PO SCH (08:44)
[2020-08-01] MEDS: ROSUVASTATIN 20 MG TABLET PO SCH (08:45)
[2020-08-01] MEDS: METOPROLOL TARTRATE 25 MG TABLET PO SCH ×2 (08:45→20:59)
[2020-08-01] MEDS: CLOPIDOGREL 75 MG TABLET PO SCH (08:48)
[2020-08-01] MEDS: ASPIRIN EC 81 MG TABLET PO SCH (08:48)
[2020-08-01] MEDS: THEOPHYLLINE ER (24 HR) 200 MG CAPSULE PO SCH (08:48)
[2020-08-01] MEDS: ISOSORBIDE MONONITRATE 20 MG TABLET PO SCH ×2 (08:49→20:59)
[2020-08-01] MEDS: FAMOTIDINE 20 MG TABLET PO SCH (20:59)
[2020-08-02] MEDS: INSULIN REGULAR 100 UNIT/ML SUBCUT SCH ×4 (10:04→21:14)
[2020-08-02] MEDS: ASPIRIN EC 81 MG TABLET PO SCH (10:40)
[2020-08-02] MEDS: METOPROLOL TARTRATE 25 MG TABLET PO SCH ×2 (10:40→21:14)
[2020-08-02] MEDS: ISOSORBIDE MONONITRATE 20 MG TABLET PO SCH ×2 (10:40→21:14)
[2020-08-02] MEDS: DOCUSATE SODIUM 100 MG CAPSULE PO SCH ×2 (10:41→21:13)
[2020-08-02] MEDS: THEOPHYLLINE ER (24 HR) 200 MG CAPSULE PO SCH (10:41)
[2020-08-02] MEDS: CLOPIDOGREL 75 MG TABLET PO SCH (10:42)
[2020-08-02] MEDS: ROSUVASTATIN 20 MG TABLET PO SCH (10:42)
[2020-08-02] MEDS: BISACODYL 5 MG TABLET PO SCH (10:45)
[2020-08-02] MEDS: tiZANidine 4 MG TABLET PO PRN ×2 (15:15→21:19)
[2020-08-02] MEDS: FAMOTIDINE 20 MG TABLET PO SCH (21:13)
[2020-08-03] MEDS: ASPIRIN EC 81 MG TABLET PO SCH (10:31)
[2020-08-03] MEDS: CLOPIDOGREL 75 MG TABLET PO SCH (10:31)
[2020-08-03] MEDS: ISOSORBIDE MONONITRATE 20 MG TABLET PO SCH ×2 (10:32→23:09)
[2020-08-03] MEDS: INSULIN REGULAR 100 UNIT/ML SUBCUT SCH ×4 (10:32→23:11)
[2020-08-03] MEDS: THEOPHYLLINE ER (24 HR) 200 MG CAPSULE PO SCH (10:32)
[2020-08-03] MEDS: ROSUVASTATIN 20 MG TABLET PO SCH (10:32)
[2020-08-03] MEDS: BISACODYL 5 MG TABLET PO SCH (10:32)
[2020-08-03] MEDS: DOCUSATE SODIUM 100 MG CAPSULE PO SCH ×2 (10:34→23:10)
[2020-08-03] MEDS: METOPROLOL TARTRATE 25 MG TABLET PO SCH ×2 (10:36→23:09)
[2020-08-03] MEDS ORDERED: KETOROLAC 15 MG/1 ML VIAL IV ONE (17:47)
[2020-08-03] MEDS: FAMOTIDINE 20 MG TABLET PO SCH (23:08)
[2020-08-03] MEDS: KETOROLAC 15 MG/1 ML VIAL IV SCH (23:10)
[2020-08-04 06:04] LABS: Calcium 8.8 MG/DL (8.5-10.1); Osmolality,Calculated 277.7 MOS/KG (273-304); Potassium 3.7 MMOL/L (3.5-5.1)
[2020-08-04] MEDS: KETOROLAC 15 MG/1 ML VIAL IV SCH (06:12)
[2020-08-04] MEDS: ROSUVASTATIN 20 MG TABLET PO SCH (08:43)
[2020-08-04] MEDS: ASPIRIN EC 81 MG TABLET PO SCH (08:44)
[2020-08-04] MEDS: CLOPIDOGREL 75 MG TABLET PO SCH (08:44)
[2020-08-04] MEDS: THEOPHYLLINE ER (24 HR) 200 MG CAPSULE PO SCH (08:44)
[2020-08-04] MEDS: INSULIN REGULAR 100 UNIT/ML SUBCUT SCH (08:44)
[2020-08-04] MEDS: ISOSORBIDE MONONITRATE 20 MG TABLET PO SCH (08:44)
[2020-08-04] MEDS: DOCUSATE SODIUM 100 MG CAPSULE PO SCH (08:45)
[2020-08-04] MEDS: BISACODYL 5 MG TABLET PO SCH (08:45)
[2020-08-04] MEDS: METOPROLOL TARTRATE 25 MG TABLET PO SCH (08:46)
[2020-08-04 11:53] VITALS: BP 115/61
== END 2020-08-04 12:38 | disposition home or self-care (01) ==
LOC: N.EDINP 12:02 → N.ED 12:02 → N.TELEN 15:36
PROVIDERS: ADMIT Internal Medicine; ATTEND Internal Medicine